=== PATIENT | female | born 1970 | race Caucasian/White ===

== ENCOUNTER → 2023-11-13 14:06 | Outpatient (REF) | payer OTHER, SELFPAY | LOC: HWRAD 14:06 | PROVIDERS: ATTENDING PHYSICIAN Orthopaedic Surgery; FAMILY PHYSICIAN Internal Medicine | DX: S82.142D Displaced bicondylar fracture of left tibia, subsequent encounter for closed fracture with routine healing (principal) | CPT/HCPCS: 73562; 73590 ==

== ENCOUNTER → 2023-12-07 09:03 | Outpatient (REF) | payer OTHER, SELFPAY | LOC: WDC 09:03 | PROVIDERS: ATTENDING PHYSICIAN Obstetrics & Gynecology; FAMILY PHYSICIAN Internal Medicine | DX: Z12.31 Encounter for screening mammogram for malignant neoplasm of breast (principal); Z87.81 Personal history of (healed) traumatic fracture; Z87.39 Personal history of other diseases of the musculoskeletal system and connective tissue | CPT/HCPCS: 77063; 77067; 77080 ==

== ENCOUNTER → 2024-12-16 12:03 | Outpatient (REF) | payer OTHER, SELFPAY | LOC: HWRAD 12:03 | PROVIDERS: ATTENDING PHYSICIAN Orthopaedic Surgery; FAMILY PHYSICIAN Internal Medicine | DX: S82.142D Displaced bicondylar fracture of left tibia, subsequent encounter for closed fracture with routine healing (principal) | CPT/HCPCS: 73564 ==

== ENCOUNTER 2025-04-18 12:02 | Outpatient (RCR) | payer OTHER, SELFPAY | END 2025-04-18 23:59 | disposition home or self-care (01) | LOC: RPT 12:02 | PROVIDERS: ATTENDING PHYSICIAN Orthopaedic Surgery; FAMILY PHYSICIAN Internal Medicine | DX: M76.61 Achilles tendinitis, right leg (principal); Z73.6 Limitation of activities due to disability; R26.2 Difficulty in walking, not elsewhere classified; M62.81 Muscle weakness (generalized); X50.1XXD Overexertion from prolonged static or awkward postures, subsequent encounter | CPT/HCPCS: 97110; 97112; 97161; 97530 ==

== ENCOUNTER 2025-04-27 17:09 | Outpatient (RCR) | payer OTHER, SELFPAY | END 2025-04-27 23:59 | disposition home or self-care (01) | LOC: RPT 17:09 | PROVIDERS: ATTENDING PHYSICIAN Orthopaedic Surgery; FAMILY PHYSICIAN Internal Medicine | DX: M76.61 Achilles tendinitis, right leg (principal); Z73.6 Limitation of activities due to disability; R26.2 Difficulty in walking, not elsewhere classified; M62.81 Muscle weakness (generalized); X50.1XXD Overexertion from prolonged static or awkward postures, subsequent encounter | CPT/HCPCS: 97110; 97112; 97140 ==

== ENCOUNTER → 2025-06-09 07:29 | Outpatient (REF) | payer OTHER, SELFPAY | LOC: PAVMRI 07:29 | PROVIDERS: ATTENDING PHYSICIAN Orthopaedic Surgery; FAMILY PHYSICIAN Internal Medicine | DX: M76.61 Achilles tendinitis, right leg (principal) | CPT/HCPCS: 73721 ==

== ENCOUNTER → 2025-06-09 12:30 | Outpatient (REF) | payer OTHER, SELFPAY | LOC: WDC 12:30 | PROVIDERS: ATTENDING PHYSICIAN Internal Medicine | DX: Z12.31 Encounter for screening mammogram for malignant neoplasm of breast (principal) | CPT/HCPCS: 77063; 77067 ==